=== PATIENT | female | born 1960 | race African-American/Black ===

== ENCOUNTER 2019-12-15 21:22 | Inpatient (IN) | payer SELFPAY ==
[~2019-12-15] VITALS: Ht 144.8 cm; Wt 78.0 kg
[2019-12-15] MEDS ORDERED: NITROGLYCERIN 0.4MG TABLET SL SL PRN (22:15)
[2019-12-15 23:12] LABS: HEMATOCRIT. 25.1 % (36.0-48.0); HEMOGLOBIN. 8.4 g/dL (12.0-16.0); MEAN CORPUSCULAR HEMOGLOBIN 33.4 pg (28.0-32.0); MEAN CORPUSCULAR VOLUME 99.9 fL (81.0-99.0); MEAN PLATELET VOLUME 8.1 fl (7.4-10.4); PLATELET 169 x1000/uL (130-400); RED BLOOD CELL COUNT 2.52 mill/uL (4.2-5.4); RED CELL DISTRIBUTION WIDTH 16.9 % (11.6-14.6)
[2019-12-15 23:16] LABS: CHLORIDE 106 mEq/L (98-107)
[2019-12-15 23:24] LABS: NUCLEATED RED BLOOD CELLS 1 /100 WBC; PLATELET ESTIMATE NORMAL
[2019-12-16] MEDS ORDERED: IOHEXOL-350 100 ML BOTTLE ONE ×2 (00:58→18:48)
[2019-12-16] MEDS ORDERED: SODIUM CHLORIDE 0.9% 2,000 ML IV NR (01:30)
[2019-12-16] MEDS ORDERED: PROPOFOL 10MG/ML 100ML 100 ML IV SCH (01:30)
[2019-12-16] MEDS ORDERED: PIPERACILLIN/TAZ 3.375G PREMIX 50 ML IV ONE (01:30)
[2019-12-16] MEDS ORDERED: VANCOMYCIN 1 G PREMIX 200 ML IV NR (01:30)
[2019-12-16] MEDS ORDERED: PIPERACILLIN/TAZOBACTAM 2.25 G in DEXTROSE 5% WATER 50 ML IV NR (02:00)
[2019-12-16] MEDS ORDERED: ENOXAPARIN 80MG/0.8ML SYR SUBCUT ONE (02:00)
[2019-12-16 02:27] LABS: BG BASE EXCESS -5.2 mmol/L (-2.0-2.0); BG CARBOXYHEMOGLOBIN 1.6 % (0.5-1.5); BG DEOXYHEMOGLOBIN 18.7 % (0.0-5.0); BG FRACTION INSPIRED OXYGEN 100; BG HCO3 ACT 21.8 mmol/L (22.0-26.0); BG METHEMOGLOBIN 0.1 % (0.0-1.5); BG OXYHEMOGLOBIN 79.6 % (94.0-97.0); BG PCO2 49.3 mmHg (35.0-45.0); BG PH 7.264 (7.350-7.450); BG PO2 52.9 mmHg (75.0-100.0); BG SAMPLE SITE RIGHT RADIAL; BG TIDAL VOLUME(mL) 500 mL; BG TOTAL HEMOGLOBIN 11.3 g/dL (12.0-18.0); BG VENT MODE VENT - A/C; BG VENT RATE 20 set
[2019-12-16] MEDS ORDERED: ONDANSETRON HCL 4MG/2ML INJ IV PRN (05:15)
[2019-12-16] MEDS: DEXT 5%/0.45% NACL 1000ML 1,000 ML IV SCH ×2 (07:46→22:40)
[2019-12-16] MEDS: AZITHROMYCIN 500 MG in DEXT 5% WATER 250 ML IV SCH ×2 (08:00→10:45)
[2019-12-16] MEDS ORDERED: CEFTRIAXONE 1 G PREMIX 50 ML IV SCH (09:00)
[2019-12-16] MEDS: METOPROLOL TARTRATE 25MG TABLET PO SCH ×3 (11:23→21:35)
[2019-12-16] MEDS ORDERED: IPRATROPIUM/ALBUTEROL 0.5-3(2.5)MG/3ML NEB HHN PRN (14:45)
[2019-12-16] MEDS ORDERED: FENTANYL CITRATE/PF 1,000 MCG in SODIUM CHLORIDE 0.9% 80 ML IV PRN (14:45)
[2019-12-16 15:13] LABS: HEMATOCRIT. 21.9 % (36.0-48.0); HEMOGLOBIN. 7.3 g/dL (12.0-16.0); MEAN CORPUSCULAR HEMOGLOBIN 33.1 pg (28.0-32.0); MEAN PLATELET VOLUME 8.5 fl (7.4-10.4); PLATELET 138 x1000/uL (130-400); RED BLOOD CELL COUNT 2.19 mill/uL (4.2-5.4); RED CELL DISTRIBUTION WIDTH 17.1 % (11.6-14.6)
[2019-12-16 15:37] LABS: BG BASE EXCESS -3.7 mmol/L (-2.0-2.0); BG CARBOXYHEMOGLOBIN 0.4 % (0.5-1.5); BG DEOXYHEMOGLOBIN 3.3 % (0.0-5.0); BG FRACTION INSPIRED OXYGEN 100; BG HCO3 ACT 20.3 mmol/L (22.0-26.0); BG METHEMOGLOBIN 0.3 % (0.0-1.5); BG OXYGEN SATURATION 96.7 % (92.0-98.5); BG PCO2 32.5 mmHg (35.0-45.0); BG PH 7.414 (7.350-7.450); BG PO2 87.5 mmHg (75.0-100.0); BG SAMPLE SITE RIGHT RADIAL; BG TIDAL VOLUME(mL) 500 mL; BG TOTAL HEMOGLOBIN 8.6 g/dL (12.0-18.0); BG VENT MODE VENT - A/C; BG VENT RATE 24 set
[2019-12-16 16:15] LABS: PLATELET ESTIMATE NORMAL
[2019-12-16] MEDS: PANTOPRAZOLE SODIUM 40 MG/VIAL IV SCH (17:54)
[2019-12-16] MEDS: IPRATROPIUM/ALBUTEROL 0.5-3(2.5)MG/3ML NEB HHN SCH (21:20)
[2019-12-16] MEDS: PROPOFOL 10MG/ML 100ML 100 ML IV PRN (21:43)
[2019-12-16 23:06] LABS: CREATINE KINASE MB FRACTION 7.1 ng/mL (0.5-3.6)
[2019-12-17] VITALS (12 sets, daily range): BP systolic 73–148; BP diastolic 45–85
[2019-12-17] MEDS: IPRATROPIUM/ALBUTEROL 0.5-3(2.5)MG/3ML NEB HHN SCH ×3 (01:21→22:15)
[2019-12-17] MEDS: PROPOFOL 10MG/ML 100ML 100 ML IV PRN ×2 (04:12→10:10)
[2019-12-17 05:03] LABS: HEMATOCRIT. 22.6 % (36.0-48.0); HEMOGLOBIN. 7.3 g/dL (12.0-16.0); MEAN CORPUSCULAR HEMOGLOBIN 32.7 pg (28.0-32.0); MEAN CORPUSCULAR VOLUME 100.4 fL (81.0-99.0); MEAN PLATELET VOLUME 8.9 fl (7.4-10.4); PLATELET 147 x1000/uL (130-400); RED BLOOD CELL COUNT 2.25 mill/uL (4.2-5.4); RED CELL DISTRIBUTION WIDTH 17.3 % (11.6-14.6)
[2019-12-17 05:10] LABS: CHLORIDE 106 mEq/L (98-107)
[2019-12-17 05:17] LABS: LDL CHOLESTEROL 26 mg/dL (5-100)
[2019-12-17 05:19] LABS: CREATINE KINASE 79 IU/L (26-192); CREATINE KINASE MB FRACTION 3.8 ng/mL (0.5-3.6); HDL CHOLESTEROL 46 mg/dL (40-59); T4 FREE 1.36 ng/dL (0.76-1.46)
[2019-12-17] MEDS: PANTOPRAZOLE SODIUM 40 MG/VIAL IV SCH (09:00)
[2019-12-17] MEDS: ENOXAPARIN 30MG/0.3ML SYR SUBCUT SCH (09:00)
[2019-12-17] MEDS: METOPROLOL TARTRATE 25MG TABLET PO SCH ×2 (09:00→21:38)
[2019-12-17 09:06] LABS: BG BASE EXCESS -3.3 mmol/L (-2.0-2.0); BG CARBOXYHEMOGLOBIN 0.1 % (0.5-1.5); BG DEOXYHEMOGLOBIN 0.2 % (0.0-5.0); BG FRACTION INSPIRED OXYGEN 100; BG HCO3 ACT 21.7 mmol/L (22.0-26.0); BG METHEMOGLOBIN 0.3 % (0.0-1.5); BG OXYGEN SATURATION 99.8 % (92.0-98.5); BG OXYHEMOGLOBIN 99.4 % (94.0-97.0); BG PCO2 38.4 mmHg (35.0-45.0); BG PH 7.369 (7.350-7.450); BG PO2 362.5 mmHg (75.0-100.0); BG SAMPLE SITE RIGHT RADIAL; BG TIDAL VOLUME(mL) 500 mL; BG TOTAL HEMOGLOBIN 7.3 g/dL (12.0-18.0); BG VENT MODE VENT - A/C; BG VENT RATE 20 set
[2019-12-17 10:29] LABS: PLATELET ESTIMATE NORMAL
[2019-12-17] MEDS ORDERED: NOREPINEPHRINE 4 MG in DEXT 5% WATER 250 ML IV ONE (12:00)
[2019-12-17] MEDS: AZITHROMYCIN 500 MG in DEXT 5% WATER 250 ML IV SCH (12:09)
[2019-12-17] MEDS: CEFTRIAXONE 1,000 MG in DEXTROSE 5% WATER 50 ML IV SCH (12:09)
[2019-12-17] MEDS: FENTANYL CITRATE/PF 1,000 MCG in SODIUM CHLORIDE 0.9% 80 ML IV PRN (12:39)
[2019-12-17] MEDS ORDERED: PROPOFOL 10MG/ML 100ML 100 ML IV PRN (14:39)
[2019-12-17] MEDS ORDERED: VANCOMYCIN 750 MG PREMIX 150 ML IV SCH (17:00)
[2019-12-17] MEDS ORDERED: NOREPINEPHRINE 4 MG in DEXT 5% WATER 246 ML IV PRN (17:30)
[2019-12-17] MEDS: DEXT 5%/0.45% NACL 1000ML 1,000 ML IV SCH (20:00)
[2019-12-18] MEDS: IPRATROPIUM/ALBUTEROL 0.5-3(2.5)MG/3ML NEB HHN SCH ×4 (01:56→20:20)
[2019-12-18] MEDS: ENOXAPARIN 30MG/0.3ML SYR SUBCUT SCH (07:49)
[2019-12-18] MEDS: PANTOPRAZOLE SODIUM 40 MG/VIAL IV SCH (07:50)
[2019-12-18] MEDS: METOPROLOL TARTRATE 25MG TABLET PO SCH ×2 (08:00→09:45)
[2019-12-18] MEDS: AZITHROMYCIN 500 MG in DEXT 5% WATER 250 ML IV SCH (08:14)
[2019-12-18] MEDS: DEXT 5%/0.45% NACL 1000ML 1,000 ML IV SCH (08:14)
[2019-12-18 09:10] LABS: BG BASE EXCESS -3.9 mmol/L (-2.0-2.0); BG CARBOXYHEMOGLOBIN 0.4 % (0.5-1.5); BG DEOXYHEMOGLOBIN 9.9 % (0.0-5.0); BG FRACTION INSPIRED OXYGEN 50; BG METHEMOGLOBIN 0.3 % (0.0-1.5); BG OXYHEMOGLOBIN 89.4 % (94.0-97.0); BG PCO2 43.8 mmHg (35.0-45.0); BG PH 7.318 (7.350-7.450); BG PO2 62.6 mmHg (75.0-100.0); BG SAMPLE SITE RIGHT RADIAL; BG TIDAL VOLUME(mL) 500 mL; BG TOTAL HEMOGLOBIN 7.3 g/dL (12.0-18.0); BG VENT MODE VENT - A/C; BG VENT RATE 20 set
[2019-12-18] MEDS: CEFTRIAXONE 1,000 MG in DEXTROSE 5% WATER 50 ML IV SCH (11:00)
[2019-12-19] VITALS (30 sets, daily range): BP systolic 87–167; BP diastolic 49–74
[2019-12-19] MEDS: PROPOFOL 10MG/ML 100ML 100 ML IV PRN ×5 (00:27→20:26)
[2019-12-19] MEDS: DEXT 5%/0.45% NACL 1000ML 1,000 ML IV SCH ×2 (00:40→09:58)
[2019-12-19 01:02] LABS: MEAN CORPUSCULAR HEMOGLOBIN 32.3 pg (28.0-32.0); MEAN CORPUSCULAR VOLUME 99.1 fL (81.0-99.0); MEAN PLATELET VOLUME 8.9 fl (7.4-10.4); PLATELET 137 x1000/uL (130-400); RED BLOOD CELL COUNT 1.92 mill/uL (4.2-5.4); RED CELL DISTRIBUTION WIDTH 17.2 % (11.6-14.6)
[2019-12-19 01:32] LABS: HEMOGLOBIN. 6.2 g/dL (12.0-16.0)
[2019-12-19 01:33] LABS: HEMATOCRIT. 19.1 % (36.0-48.0)
[2019-12-19] MEDS: IPRATROPIUM/ALBUTEROL 0.5-3(2.5)MG/3ML NEB HHN SCH ×5 (02:02→20:38)
[2019-12-19 04:36] LABS: MEAN CORPUSCULAR HEMOGLOBIN 32.3 pg (28.0-32.0); MEAN CORPUSCULAR VOLUME 100.1 fL (81.0-99.0); MEAN PLATELET VOLUME 9.5 fl (7.4-10.4); PLATELET 134 x1000/uL (130-400); RED BLOOD CELL COUNT 1.98 mill/uL (4.2-5.4); RED CELL DISTRIBUTION WIDTH 17.6 % (11.6-14.6)
[2019-12-19 04:43] LABS: HEMOGLOBIN. 6.4 g/dL (12.0-16.0)
[2019-12-19 04:45] LABS: HEMATOCRIT. 19.8 % (36.0-48.0)
[2019-12-19 07:27] LABS: PLATELET ESTIMATE NORMAL
[2019-12-19 08:31] LABS: PLATELET ESTIMATE NORMAL
[2019-12-19 09:05] LABS: BG BASE EXCESS -4.5 mmol/L (-2.0-2.0); BG CARBOXYHEMOGLOBIN 0.6 % (0.5-1.5); BG DEOXYHEMOGLOBIN 7.1 % (0.0-5.0); BG FRACTION INSPIRED OXYGEN 50; BG HCO3 ACT 21.1 mmol/L (22.0-26.0); BG METHEMOGLOBIN 0.4 % (0.0-1.5); BG OXYGEN SATURATION 92.8 % (92.0-98.5); BG OXYHEMOGLOBIN 91.9 % (94.0-97.0); BG PCO2 41.4 mmHg (35.0-45.0); BG PH 7.326 (7.350-7.450); BG PO2 69.3 mmHg (75.0-100.0); BG SAMPLE SITE RIGHT RADIAL; BG TIDAL VOLUME(mL) 500 mL; BG TOTAL HEMOGLOBIN 7.6 g/dL (12.0-18.0); BG VENT MODE VENT - A/C; BG VENT RATE 20 set
[2019-12-19] MEDS: AZITHROMYCIN 500 MG in DEXT 5% WATER 250 ML IV SCH (09:41)
[2019-12-19] MEDS: ENOXAPARIN 30MG/0.3ML SYR SUBCUT SCH (09:41)
[2019-12-19] MEDS: PANTOPRAZOLE SODIUM 40 MG/VIAL IV SCH (09:42)
[2019-12-19] MEDS: METOPROLOL TARTRATE 25MG TABLET PO SCH ×2 (09:58→20:22)
[2019-12-19] MEDS: ACETAMINOPHEN 325MG TABLET PO PRN (09:58)
[2019-12-19] MEDS: CEFTRIAXONE 1,000 MG in DEXTROSE 5% WATER 50 ML IV SCH (16:47)
[2019-12-19] MEDS ORDERED: VANCOMYCIN 500 MG PREMIX 100 ML IV SCH ×2 (17:00→18:30)
[2019-12-19 22:37] LABS: HEMATOCRIT 27.4 % (36.0-48.0); HEMOGLOBIN 9.5 g/dL (12.0-16.0)
[2019-12-20] VITALS (37 sets, daily range): BP systolic 116–196; BP diastolic 64–91
[2019-12-20] MEDS: PROPOFOL 10MG/ML 100ML 100 ML IV PRN ×5 (01:23→20:31)
[2019-12-20] MEDS: FENTANYL CITRATE/PF 1,000 MCG in SODIUM CHLORIDE 0.9% 80 ML IV PRN (05:41)
[2019-12-20 08:14] LABS: BG BASE EXCESS -6.3 mmol/L (-2.0-2.0); BG CARBOXYHEMOGLOBIN 0.3 % (0.5-1.5); BG DEOXYHEMOGLOBIN 3.4 % (0.0-5.0); BG FRACTION INSPIRED OXYGEN 50; BG METHEMOGLOBIN 0.2 % (0.0-1.5); BG OXYGEN SATURATION 96.6 % (92.0-98.5); BG OXYHEMOGLOBIN 96.1 % (94.0-97.0); BG PCO2 26.5 mmHg (35.0-45.0); BG PH 7.426 (7.350-7.450); BG PO2 94.2 mmHg (75.0-100.0); BG SAMPLE SITE RIGHT RADIAL; BG TIDAL VOLUME(mL) 500 mL; BG TOTAL HEMOGLOBIN 9.2 g/dL (12.0-18.0); BG VENT MODE VENT - A/C; BG VENT RATE 20 set
[2019-12-20] MEDS ORDERED: DEXTROSE 5% WATER 1,000 ML IV SCH (08:45)
[2019-12-20] MEDS: METOPROLOL TARTRATE 25MG TABLET PO SCH ×2 (08:50→20:15)
[2019-12-20] MEDS: PANTOPRAZOLE SODIUM 40 MG/VIAL IV SCH (08:50)
[2019-12-20] MEDS: IPRATROPIUM/ALBUTEROL 0.5-3(2.5)MG/3ML NEB HHN SCH ×3 (08:51→20:20)
[2019-12-20] MEDS: AZITHROMYCIN 500 MG in DEXT 5% WATER 250 ML IV SCH (08:51)
[2019-12-20] MEDS: ENOXAPARIN 30MG/0.3ML SYR SUBCUT SCH (08:52)
[2019-12-20 09:24] LABS: HEMATOCRIT. 26.6 % (36.0-48.0); HEMOGLOBIN. 9.3 g/dL (12.0-16.0); MEAN CORPUSCULAR HEMOGLOBIN 31.5 pg (28.0-32.0); MEAN PLATELET VOLUME 9.2 fl (7.4-10.4); PLATELET 124 x1000/uL (130-400); RED BLOOD CELL COUNT 2.96 mill/uL (4.2-5.4); RED CELL DISTRIBUTION WIDTH 17.1 % (11.6-14.6)
[2019-12-20] MEDS: EPOETIN ALFA 4000UNITS/ML VIAL SUBCUT SCH (09:56)
[2019-12-20 10:14] LABS: PLATELET ESTIMATE SLIGHTLY DECREASED
[2019-12-20] MEDS: CEFTRIAXONE 1,000 MG in DEXTROSE 5% WATER 50 ML IV SCH (12:32)
[2019-12-20] MEDS: METOCLOPRAMIDE HCL 10MG/2ML VIAL IV SCH ×2 (17:01→23:25)
[2019-12-21] VITALS (41 sets, daily range): BP systolic 120–186; BP diastolic 60–82
[2019-12-21] MEDS: IPRATROPIUM/ALBUTEROL 0.5-3(2.5)MG/3ML NEB HHN SCH ×4 (00:22→20:43)
[2019-12-21] MEDS: PROPOFOL 10MG/ML 100ML 100 ML IV PRN ×4 (02:22→18:54)
[2019-12-21] MEDS: FENTANYL CITRATE/PF 1,000 MCG in SODIUM CHLORIDE 0.9% 80 ML IV PRN ×2 (02:36→21:13)
[2019-12-21 06:21] LABS: HEMATOCRIT. 27.5 % (36.0-48.0); HEMOGLOBIN. 9.6 g/dL (12.0-16.0); MEAN CORPUSCULAR HEMOGLOBIN 31.6 pg (28.0-32.0); MEAN CORPUSCULAR VOLUME 90.7 fL (81.0-99.0); MEAN PLATELET VOLUME 9.2 fl (7.4-10.4); PLATELET 128 x1000/uL (130-400); RED BLOOD CELL COUNT 3.03 mill/uL (4.2-5.4); RED CELL DISTRIBUTION WIDTH 16.8 % (11.6-14.6)
[2019-12-21] MEDS: METOCLOPRAMIDE HCL 10MG/2ML VIAL IV SCH ×3 (08:17→17:01)
[2019-12-21] MEDS: PANTOPRAZOLE SODIUM 40 MG/VIAL IV SCH (08:17)
[2019-12-21] MEDS: METOPROLOL TARTRATE 25MG TABLET PO SCH ×2 (08:17→20:34)
[2019-12-21] MEDS: ENOXAPARIN 30MG/0.3ML SYR SUBCUT SCH (08:18)
[2019-12-21 09:08] LABS: BG BASE EXCESS -5.6 mmol/L (-2.0-2.0); BG CARBOXYHEMOGLOBIN 0.3 % (0.5-1.5); BG DEOXYHEMOGLOBIN 4.7 % (0.0-5.0); BG FRACTION INSPIRED OXYGEN 50; BG HCO3 ACT 19.7 mmol/L (22.0-26.0); BG METHEMOGLOBIN 0.3 % (0.0-1.5); BG OXYGEN SATURATION 95.3 % (92.0-98.5); BG OXYHEMOGLOBIN 94.7 % (94.0-97.0); BG PCO2 37.7 mmHg (35.0-45.0); BG PH 7.336 (7.350-7.450); BG PO2 83.5 mmHg (75.0-100.0); BG SAMPLE SITE RIGHT RADIAL; BG TIDAL VOLUME(mL) 500 mL; BG TOTAL HEMOGLOBIN 9.9 g/dL (12.0-18.0); BG VENT MODE VENT - A/C; BG VENT RATE 20 set
[2019-12-21] MEDS: CEFTRIAXONE 1,000 MG in DEXTROSE 5% WATER 50 ML IV SCH (11:30)
[2019-12-21 11:54] LABS: PLATELET ESTIMATE SLIGHTLY DECREASED
[2019-12-21] MEDS: ACETAMINOPHEN 325MG TABLET PO PRN (20:38)
[2019-12-22] VITALS (49 sets, daily range): BP systolic 93–208; BP diastolic 52–95
[2019-12-22] MEDS: METOCLOPRAMIDE HCL 10MG/2ML VIAL IV SCH ×4 (00:21→17:45)
[2019-12-22] MEDS: IPRATROPIUM/ALBUTEROL 0.5-3(2.5)MG/3ML NEB HHN SCH ×4 (02:42→20:32)
[2019-12-22] MEDS: HYDRALAZINE 20MG/ML VIAL IV PRN ×2 (06:07→11:55)
[2019-12-22 06:19] LABS: HEMATOCRIT. 26.7 % (36.0-48.0); HEMOGLOBIN. 9.1 g/dL (12.0-16.0); MEAN CORPUSCULAR HEMOGLOBIN 31.2 pg (28.0-32.0); MEAN CORPUSCULAR VOLUME 91.3 fL (81.0-99.0); MEAN PLATELET VOLUME 9.3 fl (7.4-10.4); PLATELET 151 x1000/uL (130-400); RED BLOOD CELL COUNT 2.92 mill/uL (4.2-5.4); RED CELL DISTRIBUTION WIDTH 16.6 % (11.6-14.6)
[2019-12-22] MEDS: FENTANYL CITRATE/PF 1,000 MCG in SODIUM CHLORIDE 0.9% 80 ML IV PRN ×2 (07:38→20:07)
[2019-12-22] MEDS ORDERED: MIDAZOLAM HCL 100 MG in DEXT 5% WATER 80 ML IV PRN (07:45)
[2019-12-22 08:42] LABS: BG BASE EXCESS -2.1 mmol/L (-2.0-2.0); BG CARBOXYHEMOGLOBIN 0.2 % (0.5-1.5); BG DEOXYHEMOGLOBIN 2.5 % (0.0-5.0); BG HCO3 ACT 22.5 mmol/L (22.0-26.0); BG METHEMOGLOBIN 0.3 % (0.0-1.5); BG OXYGEN SATURATION 97.5 % (92.0-98.5); BG PCO2 37.7 mmHg (35.0-45.0); BG PH 7.394 (7.350-7.450); BG PO2 101.3 mmHg (75.0-100.0); BG SAMPLE SITE RIGHT RADIAL; BG TIDAL VOLUME(mL) 500 mL; BG VENT MODE VENT - A/C; BG VENT RATE 20 set
[2019-12-22 09:33] LABS: BG FRACTION INSPIRED OXYGEN 50
[2019-12-22] MEDS: PANTOPRAZOLE SODIUM 40 MG/VIAL IV SCH (09:41)
[2019-12-22] MEDS: ENOXAPARIN 30MG/0.3ML SYR SUBCUT SCH (09:41)
[2019-12-22] MEDS: METOPROLOL TARTRATE 25MG TABLET PO SCH ×2 (09:42→20:33)
[2019-12-22 10:53] LABS: PLATELET ESTIMATE NORMAL
[2019-12-22] MEDS: EPOETIN ALFA 4000UNITS/ML VIAL SUBCUT SCH (20:33)
[2019-12-22] MEDS ORDERED: CEFEPIME 2,000 MG in DEXT 5% WATER 100 ML IV SCH (21:30)
[2019-12-23] VITALS (56 sets, daily range): BP systolic 106–218; BP diastolic 56–123
[2019-12-23] MEDS: METOCLOPRAMIDE HCL 10MG/2ML VIAL IV SCH ×5 (00:11→23:22)
[2019-12-23] MEDS: IPRATROPIUM/ALBUTEROL 0.5-3(2.5)MG/3ML NEB HHN SCH ×5 (02:22→23:44)
[2019-12-23] MEDS: CEFEPIME 1,000 MG in DEXTROSE 5% WATER 50 ML IV SCH ×2 (05:27→21:06)
[2019-12-23 05:31] LABS: HEMATOCRIT. 26.3 % (36.0-48.0); HEMOGLOBIN. 8.9 g/dL (12.0-16.0); MEAN CORPUSCULAR HEMOGLOBIN 31.2 pg (28.0-32.0); MEAN CORPUSCULAR VOLUME 91.7 fL (81.0-99.0); MEAN PLATELET VOLUME 9.6 fl (7.4-10.4); PLATELET 178 x1000/uL (130-400); RED BLOOD CELL COUNT 2.87 mill/uL (4.2-5.4); RED CELL DISTRIBUTION WIDTH 16.9 % (11.6-14.6)
[2019-12-23] MEDS: FENTANYL CITRATE/PF 1,000 MCG in SODIUM CHLORIDE 0.9% 80 ML IV PRN ×2 (06:32→16:53)
[2019-12-23] MEDS: ACETYLCYSTEINE 100MG/ML 10% VIAL 4ML INH SCH ×3 (07:57→23:44)
[2019-12-23] MEDS: PANTOPRAZOLE SODIUM 40 MG/VIAL IV SCH (09:27)
[2019-12-23] MEDS: ENOXAPARIN 30MG/0.3ML SYR SUBCUT SCH (09:28)
[2019-12-23] MEDS: METOPROLOL TARTRATE 25MG TABLET PO SCH ×2 (09:28→21:07)
[2019-12-23 09:41] LABS: PLATELET ESTIMATE NORMAL
[2019-12-23] MEDS: HYDRALAZINE 20MG/ML VIAL IV PRN ×2 (17:50→23:23)
[2019-12-23 19:00] LABS: BG BASE EXCESS -0.8 mmol/L (-2.0-2.0); BG CARBOXYHEMOGLOBIN 0.2 % (0.5-1.5); BG DEOXYHEMOGLOBIN 9.1 % (0.0-5.0); BG FRACTION INSPIRED OXYGEN 40; BG HCO3 ACT 23.2 mmol/L (22.0-26.0); BG METHEMOGLOBIN 0.2 % (0.0-1.5); BG OXYGEN SATURATION 90.9 % (92.0-98.5); BG OXYHEMOGLOBIN 90.5 % (94.0-97.0); BG PCO2 35.8 mmHg (35.0-45.0); BG PH 7.429 (7.350-7.450); BG PO2 59.1 mmHg (75.0-100.0); BG PRESSURE SUPPORT 8; BG SAMPLE SITE RIGHT RADIAL; BG TOTAL HEMOGLOBIN 11.1 g/dL (12.0-18.0); BG VENT MODE VENT - CPAP
[2019-12-24] VITALS (55 sets, daily range): BP systolic 137–198; BP diastolic 66–117
[2019-12-24] MEDS: ACETYLCYSTEINE 100MG/ML 10% VIAL 4ML INH SCH ×2 (02:15→07:57)
[2019-12-24 04:44] LABS: HEMATOCRIT. 25.8 % (36.0-48.0); HEMOGLOBIN. 8.8 g/dL (12.0-16.0); MEAN CORPUSCULAR HEMOGLOBIN 31.2 pg (28.0-32.0); MEAN CORPUSCULAR VOLUME 90.9 fL (81.0-99.0); MEAN PLATELET VOLUME 9.2 fl (7.4-10.4); PLATELET 216 x1000/uL (130-400); RED BLOOD CELL COUNT 2.83 mill/uL (4.2-5.4); RED CELL DISTRIBUTION WIDTH 16.5 % (11.6-14.6)
[2019-12-24 04:55] LABS: CHLORIDE 95 mEq/L (98-107)
[2019-12-24] MEDS: METOCLOPRAMIDE HCL 10MG/2ML VIAL IV SCH ×4 (05:14→23:07)
[2019-12-24 07:49] LABS: BG BASE EXCESS 6.6 mmol/L (-2.0-2.0); BG CARBOXYHEMOGLOBIN 0.6 % (0.5-1.5); BG DEOXYHEMOGLOBIN 3.2 % (0.0-5.0); BG FRACTION INSPIRED OXYGEN 55; BG HCO3 ACT 32.1 mmol/L (22.0-26.0); BG METHEMOGLOBIN 0.4 % (0.0-1.5); BG OXYGEN SATURATION 96.8 % (92.0-98.5); BG OXYHEMOGLOBIN 95.8 % (94.0-97.0); BG PCO2 51.5 mmHg (35.0-45.0); BG PH 7.413 (7.350-7.450); BG PO2 88.4 mmHg (75.0-100.0); BG SAMPLE SITE RIGHT RADIAL; BG TIDAL VOLUME(mL) 500 mL; BG TOTAL HEMOGLOBIN 9.9 g/dL (12.0-18.0); BG VENT MODE VENT - A/C; BG VENT RATE 16 set
[2019-12-24] MEDS: FENTANYL CITRATE/PF 1,000 MCG in SODIUM CHLORIDE 0.9% 80 ML IV PRN (07:52)
[2019-12-24] MEDS: IPRATROPIUM/ALBUTEROL 0.5-3(2.5)MG/3ML NEB HHN SCH ×3 (07:57→21:00)
[2019-12-24] MEDS: HYDRALAZINE 20MG/ML VIAL IV PRN ×2 (08:43→19:17)
[2019-12-24] MEDS: PANTOPRAZOLE SODIUM 40 MG/VIAL IV SCH (08:43)
[2019-12-24] MEDS: METOPROLOL TARTRATE 25MG TABLET PO SCH ×2 (08:43→20:10)
[2019-12-24] MEDS: ENOXAPARIN 30MG/0.3ML SYR SUBCUT SCH (08:44)
[2019-12-24] MEDS: AMLODIPINE 10MG TABLET PO SCH (13:05)
[2019-12-24] MEDS ORDERED: LABETALOL 5MG/ML SYR 20 MG/4 ML SYRINGE IV NR (13:30)
[2019-12-24 17:41] LABS: PLATELET ESTIMATE NORMAL
[2019-12-24] MEDS: EPOETIN ALFA 4000UNITS/ML VIAL SUBCUT SCH (20:10)
[2019-12-24] MEDS ORDERED: ENALAPRIL 2.5MG/2ML VIAL 2ML IV SCH (22:15)
[2019-12-24] MEDS: CEFEPIME 1,000 MG in DEXTROSE 5% WATER 50 ML IV SCH (22:31)
[2019-12-24] MEDS: CLONIDINE HCL 0.2MG/24HR PATCH TD SCH (23:07)
[2019-12-25] VITALS (80 sets, daily range): BP systolic 109–218; BP diastolic 55–119
[2019-12-25] MEDS ORDERED: NICARDIPINE 40MG/200ML PREMIX 200 ML IV PRN (00:30)
[2019-12-25] MEDS: NICARDIPINE 50 MG in SODIUM CHLORIDE 0.9% 230 ML IV PRN ×5 (00:44→20:10)
[2019-12-25] MEDS: IPRATROPIUM/ALBUTEROL 0.5-3(2.5)MG/3ML NEB HHN SCH ×4 (02:15→21:15)
[2019-12-25] MEDS: FENTANYL CITRATE/PF 1,000 MCG in SODIUM CHLORIDE 0.9% 80 ML IV PRN (02:29)
[2019-12-25] MEDS: METOCLOPRAMIDE HCL 10MG/2ML VIAL IV SCH ×4 (05:02→23:10)
[2019-12-25 06:13] LABS: HEMOGLOBIN. 8.9 g/dL (12.0-16.0); MEAN CORPUSCULAR HEMOGLOBIN 31.1 pg (28.0-32.0); MEAN CORPUSCULAR VOLUME 90.5 fL (81.0-99.0); PLATELET 225 x1000/uL (130-400); RED BLOOD CELL COUNT 2.87 mill/uL (4.2-5.4); RED CELL DISTRIBUTION WIDTH 16.6 % (11.6-14.6)
[2019-12-25] MEDS: HYDRALAZINE 20MG/ML VIAL IV PRN ×2 (06:15→14:33)
[2019-12-25 06:16] LABS: CHLORIDE 96 mEq/L (98-107)
[2019-12-25 07:41] LABS: BG BASE EXCESS 0.5 mmol/L (-2.0-2.0); BG CARBOXYHEMOGLOBIN 0.6 % (0.5-1.5); BG DEOXYHEMOGLOBIN 10.6 % (0.0-5.0); BG FRACTION INSPIRED OXYGEN 40; BG OXYGEN SATURATION 89.3 % (92.0-98.5); BG OXYHEMOGLOBIN 88.8 % (94.0-97.0); BG PCO2 39.8 mmHg (35.0-45.0); BG PH 7.416 (7.350-7.450); BG PO2 55.3 mmHg (75.0-100.0); BG PRESSURE SUPPORT 12; BG SAMPLE SITE RIGHT RADIAL; BG TIDAL VOLUME(mL) 500 mL; BG TOTAL HEMOGLOBIN 10.5 g/dL (12.0-18.0); BG VENT MODE VENT - SIMV; BG VENT RATE 10 set
[2019-12-25] MEDS: PANTOPRAZOLE SODIUM 40 MG/VIAL IV SCH (08:03)
[2019-12-25] MEDS: AMLODIPINE 10MG TABLET PO SCH (08:04)
[2019-12-25] MEDS: METOPROLOL TARTRATE 25MG TABLET PO SCH (08:04)
[2019-12-25] MEDS: ENOXAPARIN 30MG/0.3ML SYR SUBCUT SCH (08:04)
[2019-12-25] MEDS: ACETYLCYSTEINE 100MG/ML 10% VIAL 4ML INH SCH ×2 (08:21→21:15)
[2019-12-25] MEDS: CARVEDILOL 6.25 MG TABLET PO SCH ×2 (09:39→20:09)
[2019-12-25 10:41] LABS: BG BASE EXCESS -4.9 mmol/L (-2.0-2.0); BG CARBOXYHEMOGLOBIN 0.2 % (0.5-1.5); BG DEOXYHEMOGLOBIN 11.3 % (0.0-5.0); BG FRACTION INSPIRED OXYGEN 40; BG HCO3 ACT 19.1 mmol/L (22.0-26.0); BG METHEMOGLOBIN 0.1 % (0.0-1.5); BG OXYGEN SATURATION 88.7 % (92.0-98.5); BG OXYHEMOGLOBIN 88.4 % (94.0-97.0); BG PCO2 31.4 mmHg (35.0-45.0); BG PH 7.401 (7.350-7.450); BG PRESSURE SUPPORT 8; BG SAMPLE SITE RIGHT RADIAL; BG TOTAL HEMOGLOBIN 9.7 g/dL (12.0-18.0); BG VENT MODE VENT - CPAP
[2019-12-25] MEDS ORDERED: MIDAZOLAM HCL 100 MG in DEXT 5% WATER 80 ML IV PRN (19:45)
[2019-12-25] MEDS: CEFEPIME 1,000 MG in DEXTROSE 5% WATER 50 ML IV SCH (22:48)
[2019-12-26] VITALS (93 sets, daily range): BP systolic 81–186; BP diastolic 39–134
[2019-12-26] MEDS: IPRATROPIUM/ALBUTEROL 0.5-3(2.5)MG/3ML NEB HHN SCH ×4 (01:40→21:01)
[2019-12-26] MEDS: NICARDIPINE 50 MG in SODIUM CHLORIDE 0.9% 230 ML IV PRN ×4 (04:01→19:00)
[2019-12-26] MEDS: METOCLOPRAMIDE HCL 10MG/2ML VIAL IV SCH ×3 (05:21→17:49)
[2019-12-26 08:38] LABS: PLATELET ESTIMATE NORMAL
[2019-12-26] MEDS: ACETYLCYSTEINE 100MG/ML 10% VIAL 4ML INH SCH ×2 (08:40→21:01)
[2019-12-26] MEDS: CARVEDILOL 6.25 MG TABLET PO SCH ×2 (09:09→21:15)
[2019-12-26] MEDS: PANTOPRAZOLE SODIUM 40 MG/VIAL IV SCH (09:09)
[2019-12-26] MEDS: ENOXAPARIN 30MG/0.3ML SYR SUBCUT SCH (09:09)
[2019-12-26] MEDS: AMLODIPINE 10MG TABLET PO SCH (09:10)
[2019-12-26] MEDS: HYDRALAZINE 20MG/ML VIAL IV PRN (16:19)
[2019-12-26] MEDS: CEFEPIME 1,000 MG in DEXTROSE 5% WATER 50 ML IV SCH (21:14)
[2019-12-27] VITALS (57 sets, daily range): BP systolic 115–181; BP diastolic 40–107
[2019-12-27] MEDS: METOCLOPRAMIDE HCL 10MG/2ML VIAL IV SCH ×5 (00:22→23:57)
[2019-12-27] MEDS: IPRATROPIUM/ALBUTEROL 0.5-3(2.5)MG/3ML NEB HHN SCH ×5 (01:22→20:30)
[2019-12-27] MEDS: NICARDIPINE 50 MG in SODIUM CHLORIDE 0.9% 230 ML IV PRN ×2 (04:20→08:06)
[2019-12-27 05:48] LABS: CHLORIDE 101 mEq/L (98-107)
[2019-12-27 05:57] LABS: HEMATOCRIT. 25.1 % (36.0-48.0); HEMOGLOBIN. 8.4 g/dL (12.0-16.0); MEAN CORPUSCULAR VOLUME 92.7 fL (81.0-99.0); MEAN PLATELET VOLUME 9.5 fl (7.4-10.4); PLATELET 245 x1000/uL (130-400); RED BLOOD CELL COUNT 2.71 mill/uL (4.2-5.4); RED CELL DISTRIBUTION WIDTH 16.7 % (11.6-14.6)
[2019-12-27] MEDS: AMLODIPINE 10MG TABLET PO SCH (08:05)
[2019-12-27] MEDS: CARVEDILOL 6.25 MG TABLET PO SCH ×2 (08:06→20:01)
[2019-12-27] MEDS: PANTOPRAZOLE SODIUM 40 MG/VIAL IV SCH (08:07)
[2019-12-27] MEDS: ACETYLCYSTEINE 100MG/ML 10% VIAL 4ML INH SCH ×2 (08:36→20:30)
[2019-12-27] MEDS: ENOXAPARIN 30MG/0.3ML SYR SUBCUT SCH (09:00)
[2019-12-27 09:33] LABS: BG BASE EXCESS -0.5 mmol/L (-2.0-2.0); BG CARBOXYHEMOGLOBIN 0.3 % (0.5-1.5); BG FRACTION INSPIRED OXYGEN 50; BG HCO3 ACT 23.3 mmol/L (22.0-26.0); BG METHEMOGLOBIN 0.2 % (0.0-1.5); BG OXYHEMOGLOBIN 90.5 % (94.0-97.0); BG PCO2 34.1 mmHg (35.0-45.0); BG PH 7.452 (7.350-7.450); BG PO2 62.4 mmHg (75.0-100.0); BG SAMPLE SITE RIGHT RADIAL; BG TOTAL HEMOGLOBIN 8.2 g/dL (12.0-18.0); BG VENT MODE VAPOTHERM
[2019-12-27] MEDS: CLONIDINE 0.1MG TABLET PO SCH ×2 (10:46→16:53)
[2019-12-27 11:42] LABS: PLATELET ESTIMATE NORMAL
[2019-12-28] VITALS (20 sets, daily range): BP systolic 107–152; BP diastolic 52–92
[2019-12-28] MEDS: IPRATROPIUM/ALBUTEROL 0.5-3(2.5)MG/3ML NEB HHN SCH ×4 (02:04→22:18)
[2019-12-28] MEDS: METOCLOPRAMIDE HCL 10MG/2ML VIAL IV SCH ×3 (05:24→18:41)
[2019-12-28 05:50] LABS: HEMATOCRIT. 22.4 % (36.0-48.0); HEMOGLOBIN. 7.3 g/dL (12.0-16.0); MEAN CORPUSCULAR HEMOGLOBIN 30.8 pg (28.0-32.0); MEAN CORPUSCULAR VOLUME 94.6 fL (81.0-99.0); PLATELET 194 x1000/uL (130-400); RED BLOOD CELL COUNT 2.36 mill/uL (4.2-5.4); RED CELL DISTRIBUTION WIDTH 16.3 % (11.6-14.6)
[2019-12-28] MEDS ORDERED: DEXTROSE 50% WATER 50ML SYRINGE IV PRN (07:00)
[2019-12-28 08:06] LABS: NUCLEATED RED BLOOD CELLS 1 /100 WBC
[2019-12-28 08:07] LABS: PLATELET ESTIMATE NORMAL
[2019-12-28] MEDS: AMLODIPINE 10MG TABLET PO SCH (08:29)
[2019-12-28] MEDS: PANTOPRAZOLE SODIUM 40 MG/VIAL IV SCH (08:29)
[2019-12-28] MEDS: ENOXAPARIN 30MG/0.3ML SYR SUBCUT SCH (09:00)
[2019-12-28] MEDS: CARVEDILOL 6.25 MG TABLET PO SCH ×2 (09:00→21:57)
[2019-12-28] MEDS: CLONIDINE 0.1MG TABLET PO SCH ×2 (09:00→17:00)
[2019-12-29] VITALS (11 sets, daily range): BP systolic 113–174; BP diastolic 57–81
[2019-12-29] MEDS: METOCLOPRAMIDE HCL 10MG/2ML VIAL IV SCH ×4 (01:54→19:11)
[2019-12-29] MEDS: IPRATROPIUM/ALBUTEROL 0.5-3(2.5)MG/3ML NEB HHN SCH ×4 (03:20→21:30)
[2019-12-29] MEDS: EPOETIN ALFA 10000UNITS/ML VIAL SUBCUT SCH (04:20)
[2019-12-29 07:54] LABS: HEMATOCRIT. 22.4 % (36.0-48.0); HEMOGLOBIN. 7.5 g/dL (12.0-16.0); MEAN CORPUSCULAR HEMOGLOBIN 31.4 pg (28.0-32.0); MEAN CORPUSCULAR VOLUME 93.6 fL (81.0-99.0); MEAN PLATELET VOLUME 9.3 fl (7.4-10.4); PLATELET 209 x1000/uL (130-400); RED CELL DISTRIBUTION WIDTH 16.2 % (11.6-14.6)
[2019-12-29] MEDS: CARVEDILOL 6.25 MG TABLET PO SCH ×2 (08:40→21:01)
[2019-12-29] MEDS: CLONIDINE 0.1MG TABLET PO SCH ×2 (08:40→19:11)
[2019-12-29] MEDS: AMLODIPINE 10MG TABLET PO SCH (08:41)
[2019-12-29] MEDS: PANTOPRAZOLE SODIUM 40 MG/VIAL IV SCH (08:41)
[2019-12-29] MEDS: ENOXAPARIN 30MG/0.3ML SYR SUBCUT SCH (08:41)
[2019-12-29 09:45] LABS: PLATELET ESTIMATE NORMAL
[2019-12-29] MEDS: CEFTRIAXONE 1,000 MG in DEXTROSE 5% WATER 50 ML IV SCH (13:49)
[2019-12-29] MEDS: FOLIC ACID/VITAMIN B COMP W-C TABLET PO SCH (13:50)
[2019-12-29 16:52] LABS: CLARITY URINE CLEAR (CLEAR); COLOR URINE DARK YELLOW (YELLOW); KETONES URINE NEGATIVE (NEGATIVE); LEUKOCYTE ESTERASE URINE TRACE (NEGATIVE); NITRITE URINE NEGATIVE (NEGATIVE); OCCULT BLOOD URINE NEGATIVE (NEGATIVE); PROTEIN URINE 3+ (NEGATIVE); SPECIFIC GRAVITY URINE 1.018 (1.005-1.030); UROBILINOGEN URINE 0.2 E.U./dL (0.2-1.0)
[2019-12-30] VITALS (21 sets, daily range): BP systolic 95–159; BP diastolic 48–81
[2019-12-30] MEDS: METOCLOPRAMIDE HCL 10MG/2ML VIAL IV SCH ×4 (00:28→17:38)
[2019-12-30] MEDS: IPRATROPIUM/ALBUTEROL 0.5-3(2.5)MG/3ML NEB HHN SCH ×3 (02:33→21:07)
[2019-12-30 07:46] LABS: HEMATOCRIT. 21.1 % (36.0-48.0); MEAN CORPUSCULAR HEMOGLOBIN 31.4 pg (28.0-32.0); MEAN CORPUSCULAR VOLUME 95.4 fL (81.0-99.0); PLATELET 191 x1000/uL (130-400); RED BLOOD CELL COUNT 2.21 mill/uL (4.2-5.4); RED CELL DISTRIBUTION WIDTH 16.5 % (11.6-14.6)
[2019-12-30 07:51] LABS: HEMOGLOBIN. 6.9 g/dL (12.0-16.0)
[2019-12-30] MEDS: PANTOPRAZOLE SODIUM 40 MG/VIAL IV SCH (08:56)
[2019-12-30] MEDS: CARVEDILOL 6.25 MG TABLET PO SCH ×2 (09:00→20:32)
[2019-12-30] MEDS: ENOXAPARIN 30MG/0.3ML SYR SUBCUT SCH (09:00)
[2019-12-30] MEDS: CLONIDINE 0.1MG TABLET PO SCH ×2 (09:00→17:38)
[2019-12-30] MEDS: FOLIC ACID/VITAMIN B COMP W-C TABLET PO SCH (09:00)
[2019-12-30 12:15] LABS: NUCLEATED RED BLOOD CELLS 1 /100 WBC
[2019-12-30 12:16] LABS: PLATELET ESTIMATE NORMAL
[2019-12-30] MEDS: CEFTRIAXONE 1,000 MG in DEXTROSE 5% WATER 50 ML IV SCH (15:31)
[2019-12-30] MEDS: AMLODIPINE 10MG TABLET PO SCH (15:36)
[2019-12-30] MEDS: EPOETIN ALFA 10000UNITS/ML VIAL SUBCUT SCH (20:31)
[2019-12-31] VITALS (13 sets, daily range): BP systolic 114–189; BP diastolic 46–85
[2019-12-31] MEDS: METOCLOPRAMIDE HCL 10MG/2ML VIAL IV SCH ×4 (00:11→17:00)
[2019-12-31 07:01] LABS: HEMATOCRIT 22.3 % (36.0-48.0); HEMOGLOBIN 7.5 g/dL (12.0-16.0); MEAN CORPUSCULAR HEMOGLOBIN 31.2 pg (28.0-32.0); MEAN CORPUSCULAR VOLUME 93.3 fL (81.0-99.0); PLATELET 177 x1000/uL (130-400); RED BLOOD CELL COUNT 2.39 mill/uL (4.2-5.4); RED CELL DISTRIBUTION WIDTH 15.9 % (11.6-14.6)
[2019-12-31] MEDS: IPRATROPIUM/ALBUTEROL 0.5-3(2.5)MG/3ML NEB HHN SCH ×3 (07:37→21:35)
[2019-12-31] MEDS: PANTOPRAZOLE SODIUM 40 MG/VIAL IV SCH (09:22)
[2019-12-31] MEDS: CARVEDILOL 6.25 MG TABLET PO SCH ×2 (09:23→21:10)
[2019-12-31] MEDS: AMLODIPINE 10MG TABLET PO SCH (09:23)
[2019-12-31] MEDS: CLONIDINE 0.1MG TABLET PO SCH ×2 (09:23→17:00)
[2019-12-31] MEDS: FOLIC ACID/VITAMIN B COMP W-C TABLET PO SCH (09:23)
[2019-12-31] MEDS: ENOXAPARIN 30MG/0.3ML SYR SUBCUT SCH (09:24)
[2019-12-31] MEDS: CLONIDINE HCL 0.2MG/24HR PATCH TD SCH (09:24)
[2019-12-31] MEDS: CEFTRIAXONE 1,000 MG in DEXTROSE 5% WATER 50 ML IV SCH (13:08)
[2020-01-01] VITALS (12 sets, daily range): BP systolic 101–161; BP diastolic 57–106
[2020-01-01] MEDS: METOCLOPRAMIDE HCL 10MG/2ML VIAL IV SCH ×5 (00:49→19:01)
[2020-01-01] MEDS: IPRATROPIUM/ALBUTEROL 0.5-3(2.5)MG/3ML NEB HHN SCH ×3 (02:05→16:59)
[2020-01-01] MEDS: PANTOPRAZOLE SODIUM 40 MG/VIAL IV SCH (09:25)
[2020-01-01] MEDS: FOLIC ACID/VITAMIN B COMP W-C TABLET PO SCH (09:26)
[2020-01-01] MEDS: AMLODIPINE 10MG TABLET PO SCH (09:26)
[2020-01-01] MEDS: CLONIDINE 0.1MG TABLET PO SCH ×2 (09:26→19:05)
[2020-01-01] MEDS: CARVEDILOL 6.25 MG TABLET PO SCH ×2 (09:26→20:04)
[2020-01-01] MEDS: ENOXAPARIN 30MG/0.3ML SYR SUBCUT SCH (09:27)
[2020-01-01 09:39] LABS: HEMATOCRIT. 23.9 % (36.0-48.0); HEMOGLOBIN. 7.9 g/dL (12.0-16.0); MEAN CORPUSCULAR HEMOGLOBIN 31.5 pg (28.0-32.0); MEAN CORPUSCULAR VOLUME 95.4 fL (81.0-99.0); MEAN PLATELET VOLUME 9.1 fl (7.4-10.4); PLATELET 196 x1000/uL (130-400); RED CELL DISTRIBUTION WIDTH 16.7 % (11.6-14.6)
[2020-01-01 11:49] LABS: NUCLEATED RED BLOOD CELLS 7 /100 WBC; PLATELET ESTIMATE NORMAL
[2020-01-01] MEDS: CEFTRIAXONE 1,000 MG in DEXTROSE 5% WATER 50 ML IV SCH (12:45)
[2020-01-01] MEDS: EPOETIN ALFA 10000UNITS/ML VIAL SUBCUT SCH (20:38)
[2020-01-02] VITALS (7 sets, daily range): BP systolic 99–160; BP diastolic 59–111
[2020-01-02] MEDS: IPRATROPIUM/ALBUTEROL 0.5-3(2.5)MG/3ML NEB HHN SCH ×2 (02:34→08:55)
[2020-01-02] MEDS: METOCLOPRAMIDE HCL 10MG/2ML VIAL IV SCH ×2 (05:26→11:05)
[2020-01-02 07:09] LABS: HEMATOCRIT. 24.1 % (36.0-48.0); HEMOGLOBIN. 8.1 g/dL (12.0-16.0); MEAN CORPUSCULAR HEMOGLOBIN 32.3 pg (28.0-32.0); MEAN CORPUSCULAR VOLUME 96.4 fL (81.0-99.0); MEAN PLATELET VOLUME 8.9 fl (7.4-10.4); PLATELET 190 x1000/uL (130-400); RED CELL DISTRIBUTION WIDTH 16.6 % (11.6-14.6)
[2020-01-02] MEDS: CLONIDINE 0.1MG TABLET PO SCH ×2 (08:34→11:22)
[2020-01-02] MEDS: AMLODIPINE 10MG TABLET PO SCH ×2 (08:35→11:23)
[2020-01-02] MEDS: CARVEDILOL 6.25 MG TABLET PO SCH ×2 (08:35→11:23)
[2020-01-02] MEDS: FOLIC ACID/VITAMIN B COMP W-C TABLET PO SCH (08:58)
[2020-01-02] MEDS: PANTOPRAZOLE SODIUM 40 MG/VIAL IV SCH (08:58)
[2020-01-02] MEDS: ENOXAPARIN 30MG/0.3ML SYR SUBCUT SCH (08:59)
[2020-01-02] MEDS: CEFTRIAXONE 1,000 MG in DEXTROSE 5% WATER 50 ML IV SCH (11:05)
[2020-01-02 13:24] LABS: PLATELET ESTIMATE NORMAL
== END 2020-01-02 12:30 | disposition home or self-care (01) | DRG 720 ==
LOC: ER 21:22 → MICUSO 12-16 01:58 → EDBEDREQ 12-16 02:04 → EDBEDREQSVC 12-16 02:04 → EDBEDREQDT 12-16 02:04 → EDBEDREQTM 12-16 02:04 → CANRESERV 12-16 13:52 → ENRESERV 12-16 13:52 → CANRESERV 12-16 14:01 → ENRESERV 12-16 14:01 → 5EST 12-17 09:24 → MICUSO 12-17 15:23 → CVICU 12-19 11:19 → 3WST 12-28 19:36
PROVIDERS: ADMIT Hospitalist; ATTEND Hospitalist
PROC: 06HY33Z Insertion of Infusion Device into Lower Vein, Percutaneous Approach (ICD-10-PCS; principal; 2019-12-15)
PROC: B54CZZA Ultrasonography of Left Lower Extremity Veins, Guidance (ICD-10-PCS; 2019-12-15)
PROC: 5A1D70Z Performance of Urinary Filtration, Intermittent, Less than 6 Hours Per Day (ICD-10-PCS; 2019-12-16)
PROC: 0BH17EZ Insertion of Endotracheal Airway into Trachea, Via Natural or Artificial Opening (ICD-10-PCS; 2019-12-16)
PROC: 5A1955Z Respiratory Ventilation, Greater than 96 Consecutive Hours (ICD-10-PCS; 2019-12-16)
PROC: 30233N1 Transfusion of Nonautologous Red Blood Cells into Peripheral Vein, Percutaneous Approach (ICD-10-PCS; 2019-12-19)
PROC: 5A1D70Z Performance of Urinary Filtration, Intermittent, Less than 6 Hours Per Day (ICD-10-PCS; 2019-12-19)
PROC: 5A1D70Z Performance of Urinary Filtration, Intermittent, Less than 6 Hours Per Day (ICD-10-PCS; 2019-12-21)
PROC: 5A1D70Z Performance of Urinary Filtration, Intermittent, Less than 6 Hours Per Day (ICD-10-PCS; 2019-12-23)
PROC: 5A1D70Z Performance of Urinary Filtration, Intermittent, Less than 6 Hours Per Day (ICD-10-PCS; 2019-12-25)
PROC: 02HV33Z Insertion of Infusion Device into Superior Vena Cava, Percutaneous Approach (ICD-10-PCS; 2019-12-27)
PROC: B518ZZA Fluoroscopy of Superior Vena Cava, Guidance (ICD-10-PCS; 2019-12-27)
PROC: 5A09357 Assistance with Respiratory Ventilation, Less than 24 Consecutive Hours, Continuous Positive Airway Pressure (ICD-10-PCS; 2019-12-27)
PROC: 5A1D70Z Performance of Urinary Filtration, Intermittent, Less than 6 Hours Per Day (ICD-10-PCS; 2019-12-28)
PROC: 5A09357 Assistance with Respiratory Ventilation, Less than 24 Consecutive Hours, Continuous Positive Airway Pressure (ICD-10-PCS; 2019-12-29)
PROC: 5A1D70Z Performance of Urinary Filtration, Intermittent, Less than 6 Hours Per Day (ICD-10-PCS; 2019-12-30)
PROC: 5A1D70Z Performance of Urinary Filtration, Intermittent, Less than 6 Hours Per Day (ICD-10-PCS; 2020-01-01)
DX: A41.9 Sepsis, unspecified organism (principal); E78.5 Hyperlipidemia, unspecified; E78.00 Pure hypercholesterolemia, unspecified; I47.1 Supraventricular tachycardia; J96.01 Acute respiratory failure with hypoxia; E43 Unspecified severe protein-calorie malnutrition; D63.8 Anemia in other chronic diseases classified elsewhere; E87.2 Acidosis; F17.210 Nicotine dependence, cigarettes, uncomplicated; I21.4 Non-ST elevation (NSTEMI) myocardial infarction; N18.6 End stage renal disease; I42.9 Cardiomyopathy, unspecified; I35.1 Nonrheumatic aortic (valve) insufficiency; I34.0 Nonrheumatic mitral (valve) insufficiency; R16.0 Hepatomegaly, not elsewhere classified; J18.9 Pneumonia, unspecified organism; G93.41 Metabolic encephalopathy; E87.1 Hypo-osmolality and hyponatremia; E87.6 Hypokalemia; G47.10 Hypersomnia, unspecified; M19.90 Unspecified osteoarthritis, unspecified site; I13.2 Hypertensive heart and chronic kidney disease with heart failure and with stage 5 chronic kidney disease, or end stage renal disease; Z20.828 Contact with and (suspected) exposure to other viral communicable diseases; I50.43 Acute on chronic combined systolic (congestive) and diastolic (congestive) heart failure; Z68.37 Body mass index [BMI] 37.0-37.9, adult; Z88.8 Allergy status to other drugs, medicaments and biological substances; Z86.718 Personal history of other venous thrombosis and embolism; Z99.2 Dependence on renal dialysis
CPT/HCPCS: 31500; 36415; 36600; 71045; 71275; 76937; 80048; 80053; 80061; 80202; 81003; 82140; 82375; 82550; 82553; 82728; 82805; 82962; 83036; 83540; 83550; 83605; 83880; 84100; 84145; 84439; 84443; 84478; 84484; 85014; 85018; 85025; 85027; 85379; 86850; 86900; 86920; 87070; 87106; 87635; 92610; 92950; 93005; 93306; 93970; 94002; 94003; 94640; 94660; 94667; 97163; 97164; 97166; 97530; 97535; 99291; C1725; C9113; J0360; J0456; J0692; J0696; J0885; J1650; J2543; J2704; J2765; J3010; J3370; J3490; J7050; J7060; J7070; J7608; P9016; Q9967; C9803-CS

== ENCOUNTER 2020-01-14 08:03 | Inpatient (IN) | payer MEDICAID, OTHER ==
[~2020-01-14] VITALS: Ht 167.6 cm; Wt 79.4 kg
[2020-01-14] MEDS ORDERED: NITROGLYCERIN 50MG PREMIX 250 ML IV ONE (08:15)
[2020-01-14 08:23] LABS: HEMATOCRIT. 30.8 % (36.0-48.0); HEMOGLOBIN. 9.9 g/dL (12.0-16.0); MEAN CORPUSCULAR VOLUME 103.1 fL (81.0-99.0); MEAN PLATELET VOLUME 8.5 fl (7.4-10.4); PLATELET 454 x1000/uL (130-400); RED BLOOD CELL COUNT 2.99 mill/uL (4.2-5.4); RED CELL DISTRIBUTION WIDTH 21.6 % (11.6-14.6)
[2020-01-14 08:27] LABS: CHLORIDE 97 mEq/L (98-107)
[2020-01-14 08:48] LABS: PROTHROMBIN TIME 10.9 sec (9.6-11.0)
[2020-01-14 09:15] LABS: NUCLEATED RED BLOOD CELLS 1 /100 WBC; PLATELET ESTIMATE INCREASED
[2020-01-14 09:27] LABS: BG BILEVEL POS AIRWAY PRESSURE ST=18/5; BG FRACTION INSPIRED OXYGEN 100; BG HCO3 ACT 16.7 mmol/L (22.0-26.0); BG METHEMOGLOBIN 0.3 % (0.0-1.5); BG OXYGEN SATURATION 91.7 % (92.0-98.5); BG OXYHEMOGLOBIN 88.7 % (94.0-97.0); BG PCO2 35.3 mmHg (35.0-45.0); BG PH 7.293 (7.350-7.450); BG PO2 72.3 mmHg (75.0-100.0); BG SAMPLE SITE RIGHT RADIAL; BG VENT MODE MASK - BIPAP; BG VENT RATE 16 set
[2020-01-14] MEDS ORDERED: VANCOMYCIN 1 G PREMIX 200 ML IV ONE (09:30)
[2020-01-14] MEDS ORDERED: PIPERACILLIN/TAZ 3.375G PREMIX 50 ML IV ONE (09:30)
[2020-01-14] MEDS ORDERED: FUROSEMIDE 40MG/4ML VIAL IVP ONE (09:30)
[2020-01-14] MEDS ORDERED: ONDANSETRON HCL 4MG/2ML INJ IV PRN ×2 (11:00→14:30)
[2020-01-14] MEDS ORDERED: DOCUSATE SODIUM 100MG CAPSULE PO PRN (11:00)
[2020-01-14] MEDS ORDERED: IPRATROPIUM/ALBUTEROL 0.5-3(2.5)MG/3ML NEB NEB PRN (11:00)
[2020-01-14] MEDS ORDERED: GUAIFENESIN 200MG/10ML SUGAR FREE UDC PO PRN (11:00)
[2020-01-14] MEDS ORDERED: ENOXAPARIN 40MG/0.4ML SYR SUBCUT SCH (14:30)
[2020-01-14] MEDS ORDERED: ACETAMINOPHEN 325MG TABLET PO PRN (14:30)
[2020-01-14] MEDS ORDERED: MAGNESIUM/ALUMINUM HYDROXIDE/SIMETHICONE 30ML UDC PO PRN (14:30)
[2020-01-14] MEDS ORDERED: DIPHENHYDRAMINE 50MG/ML VIAL IV PRN (14:30)
[2020-01-14] MEDS ORDERED: PIPERACILLIN/TAZ 3.375G PREMIX 50 ML IV SCH (14:30)
[2020-01-14] MEDS ORDERED: CLONIDINE 0.1MG TABLET PO PRN (14:30)
[2020-01-14] MEDS: HEPARIN 5000 UNITS/ML VIAL SUBCUT SCH ×2 (14:58→22:02)
[2020-01-14 20:25] VITALS: BP 149/95
[2020-01-14 20:30] VITALS: BP 149/95
[2020-01-14] MEDS ORDERED: PIPERACILLIN/TAZOBACTAM 3.375 G in DEXT 5% WATER 100 ML IV SCH (21:00)
[2020-01-14] MEDS: ACETAMINOPHEN 325MG TABLET PO PRN (21:00)
[2020-01-14] MEDS ORDERED: ASPI-1079 PO (21:57)
[2020-01-14] MEDS: PIPERACILLIN/TAZOBACTAM 2.25 G in DEXTROSE 5% WATER 50 ML IV SCH (22:02)
[2020-01-15] VITALS: BP 180/68
[2020-01-15] MEDS: HYDRALAZINE 20MG/ML VIAL IV PRN ×2 (00:47→12:09)
[2020-01-15 04:00] VITALS: BP_SYST 160; BP_SYST 212; BP_DIAS 66; BP_DIAS 86
[2020-01-15] MEDS: HEPARIN 5000 UNITS/ML VIAL SUBCUT SCH ×3 (05:25→22:41)
[2020-01-15 08:00] VITALS: BP 142/71
[2020-01-15 09:00] LABS: BASOPHILS % 1.7 % (0.0-2.0); EOSINOPHILS % 2.9 % (0.0-5.0); HEMOGLOBIN. 8.6 g/dL (12.0-16.0); LYMPHOCYTES % 19.8 % (20.0-50.0); MEAN CORPUSCULAR HEMOGLOBIN 33.5 pg (28.0-32.0); MEAN CORPUSCULAR VOLUME 101.6 fL (81.0-99.0); MEAN PLATELET VOLUME 8.6 fl (7.4-10.4); MONOCYTES % 6.5 % (2.0-8.0); NEUTROPHILS % 69.1 % (40.0-76.0); PLATELET 383 x1000/uL (130-400); RED BLOOD CELL COUNT 2.56 mill/uL (4.2-5.4)
[2020-01-15 09:40] LABS: CHLORIDE 99 mEq/L (98-107)
[2020-01-15] MEDS: PIPERACILLIN/TAZOBACTAM 2.25 G in DEXTROSE 5% WATER 50 ML IV SCH ×2 (09:43→22:55)
[2020-01-15 12:00] VITALS: BP 185/70
[2020-01-15] MEDS: ACETAMINOPHEN 325MG TABLET PO PRN (15:24)
[2020-01-15 16:00] VITALS: BP 171/76
[2020-01-15] MEDS: CLONIDINE 0.2MG TABLET PO PRN (16:29)
[2020-01-15] MEDS: IPRATROPIUM/ALBUTEROL 0.5-3(2.5)MG/3ML NEB HHN SCH (18:00)
[2020-01-15 20:24] VITALS: BP 162/64
[2020-01-16] VITALS (8 sets, daily range): BP systolic 143–193; BP diastolic 71–92
[2020-01-16] MEDS: IPRATROPIUM/ALBUTEROL 0.5-3(2.5)MG/3ML NEB HHN SCH ×5 (02:25→20:42)
[2020-01-16] MEDS: HEPARIN 5000 UNITS/ML VIAL SUBCUT SCH ×3 (06:09→22:09)
[2020-01-16 06:32] LABS: BASOPHILS % 1.2 % (0.0-2.0); EOSINOPHILS % 4.2 % (0.0-5.0); HEMOGLOBIN. 7.6 g/dL (12.0-16.0); LYMPHOCYTES % 16.5 % (20.0-50.0); MEAN CORPUSCULAR HEMOGLOBIN 33.7 pg (28.0-32.0); MEAN CORPUSCULAR VOLUME 101.4 fL (81.0-99.0); MONOCYTES % 8.6 % (2.0-8.0); NEUTROPHILS % 69.5 % (40.0-76.0); PLATELET 301 x1000/uL (130-400); RED BLOOD CELL COUNT 2.27 mill/uL (4.2-5.4); RED CELL DISTRIBUTION WIDTH 20.9 % (11.6-14.6)
[2020-01-16] MEDS: PIPERACILLIN/TAZOBACTAM 2.25 G in DEXTROSE 5% WATER 50 ML IV SCH ×2 (08:26→22:07)
[2020-01-16] MEDS: ACETAMINOPHEN 325MG TABLET PO PRN (09:29)
[2020-01-16] MEDS: CLONIDINE 0.2MG TABLET PO PRN (15:12)
[2020-01-16] MEDS ORDERED: EPOETIN ALFA 10000UNITS/ML VIAL SUBCUT SCH (21:00)
[2020-01-17] VITALS (11 sets, daily range): BP systolic 144–179; BP diastolic 55–76
[2020-01-17] MEDS: CLONIDINE 0.2MG TABLET PO PRN ×2 (00:32→21:51)
[2020-01-17] MEDS: IPRATROPIUM/ALBUTEROL 0.5-3(2.5)MG/3ML NEB HHN SCH ×4 (02:18→20:29)
[2020-01-17 06:19] LABS: MEAN CORPUSCULAR HEMOGLOBIN 33.1 pg (28.0-32.0); MEAN CORPUSCULAR VOLUME 100.6 fL (81.0-99.0); MEAN PLATELET VOLUME 7.9 fl (7.4-10.4); PLATELET 258 x1000/uL (130-400); RED CELL DISTRIBUTION WIDTH 20.6 % (11.6-14.6)
[2020-01-17] MEDS: HEPARIN 5000 UNITS/ML VIAL SUBCUT SCH ×3 (06:31→21:50)
[2020-01-17 06:48] LABS: HEMATOCRIT. 20.1 % (36.0-48.0); HEMOGLOBIN. 6.6 g/dL (12.0-16.0)
[2020-01-17] MEDS: PIPERACILLIN/TAZOBACTAM 2.25 G in DEXTROSE 5% WATER 50 ML IV SCH ×2 (08:08→21:49)
[2020-01-17 13:50] LABS: PLATELET ESTIMATE NORMAL
[2020-01-17 20:40] LABS: HEMATOCRIT 22.9 % (36.0-48.0); HEMOGLOBIN 7.8 g/dL (12.0-16.0)
[2020-01-18 00:56] VITALS: BP 142/56
[2020-01-18] MEDS: IPRATROPIUM/ALBUTEROL 0.5-3(2.5)MG/3ML NEB HHN SCH ×2 (01:26→08:40)
[2020-01-18 04:00] VITALS: BP 110/65
[2020-01-18] MEDS: HEPARIN 5000 UNITS/ML VIAL SUBCUT SCH (06:00)
[2020-01-18 07:28] LABS: HEMATOCRIT. 22.4 % (36.0-48.0); HEMOGLOBIN. 7.6 g/dL (12.0-16.0); MEAN CORPUSCULAR HEMOGLOBIN 32.9 pg (28.0-32.0); MEAN CORPUSCULAR VOLUME 97.5 fL (81.0-99.0); MEAN PLATELET VOLUME 8.1 fl (7.4-10.4); PLATELET 244 x1000/uL (130-400); RED CELL DISTRIBUTION WIDTH 20.9 % (11.6-14.6)
[2020-01-18 08:00] VITALS: BP 159/60
[2020-01-18] MEDS: PIPERACILLIN/TAZOBACTAM 2.25 G in DEXTROSE 5% WATER 50 ML IV SCH (08:12)
[2020-01-18 11:51] VITALS: BP 159/60
[2020-01-18 12:00] VITALS: BP 153/81
[2020-01-18 14:08] LABS: ATYPICAL LYMPHOCYTES 1; NUCLEATED RED BLOOD CELLS 1 /100 WBC; PLATELET ESTIMATE NORMAL
== END 2020-01-18 12:52 | disposition home or self-care (01) | DRG 720 ==
LOC: ER 08:10 → 7WST 11:15 → EDBEDREQSVC 11:18 → EDBEDREQ 11:18 → CANRESERV 16:15 → ENRESERV 16:15 → 7WST 20:53 → 6WST 01-15 16:56
PROVIDERS: ADMIT Hospitalist; ATTEND Hospitalist
PROC: 5A1D70Z Performance of Urinary Filtration, Intermittent, Less than 6 Hours Per Day (ICD-10-PCS; 2020-01-14)
PROC: 5A09357 Assistance with Respiratory Ventilation, Less than 24 Consecutive Hours, Continuous Positive Airway Pressure (ICD-10-PCS; 2020-01-14)
PROC: 5A1D70Z Performance of Urinary Filtration, Intermittent, Less than 6 Hours Per Day (ICD-10-PCS; 2020-01-16)
PROC: 30233N1 Transfusion of Nonautologous Red Blood Cells into Peripheral Vein, Percutaneous Approach (ICD-10-PCS; principal; 2020-01-17)
PROC: 5A1D70Z Performance of Urinary Filtration, Intermittent, Less than 6 Hours Per Day (ICD-10-PCS; 2020-01-18)
DX: A41.9 Sepsis, unspecified organism (principal); I13.2 Hypertensive heart and chronic kidney disease with heart failure and with stage 5 chronic kidney disease, or end stage renal disease; J96.01 Acute respiratory failure with hypoxia; E43 Unspecified severe protein-calorie malnutrition; I50.33 Acute on chronic diastolic (congestive) heart failure; D63.1 Anemia in chronic kidney disease; E78.5 Hyperlipidemia, unspecified; N18.6 End stage renal disease; R00.0 Tachycardia, unspecified; E78.00 Pure hypercholesterolemia, unspecified; D72.829 Elevated white blood cell count, unspecified; Z20.828 Contact with and (suspected) exposure to other viral communicable diseases; E87.2 Acidosis; Z99.2 Dependence on renal dialysis; Z88.8 Allergy status to other drugs, medicaments and biological substances; Z68.28 Body mass index [BMI] 28.0-28.9, adult
CPT/HCPCS: 36415; 36600; 71045; 80048; 80053; 82375; 82805; 83605; 83880; 84145; 84484; 85014; 85018; 85025; 85049; 85384; 86850; 86900; 86920; 87635; 93005; 94640; 94660; 99291; J0360; J0885; J1644; J1940; J2543; J3370; J3490; J7060; P9016

== ENCOUNTER 2020-01-19 01:12 | Inpatient (IN) | payer MEDICAID, OTHER ==
[~2020-01-19] VITALS: Ht 160 cm; Wt 75.0 kg
[2020-01-19] VITALS (37 sets, daily range): BP systolic 132–179; BP diastolic 60–100
[~2020-01-19 01:12] MED LIST: ASPI-1079 PO
[2020-01-19] MEDS ORDERED: MAGNESIUM 2 G PREMIX 50 ML IV STA (01:26)
[2020-01-19] MEDS ORDERED: ALBUTEROL (0.083%) 2.5MG/3ML NEB HHN STA (01:26)
[2020-01-19] MEDS ORDERED: METHYLPREDNISOLONE SOD SUCC 125 MG/2 ML VIAL IV STA (01:26)
[2020-01-19] MEDS ORDERED: IPRATROPIUM BROMIDE (0.02%) 0.5MG/2.5ML NEB HHN STA (01:26)
[2020-01-19] MEDS ORDERED: FUROSEMIDE 100MG/10ML VIAL IVP ONE (02:00)
[2020-01-19 02:10] LABS: HEMATOCRIT 26.8 % (36.0-48.0); HEMOGLOBIN 8.6 g/dL (12.0-16.0); MEAN CORPUSCULAR HEMOGLOBIN 31.9 pg (28.0-32.0); MEAN CORPUSCULAR VOLUME 99.7 fL (81.0-99.0); PLATELET 352 x1000/uL (130-400); RED BLOOD CELL COUNT 2.69 mill/uL (4.2-5.4)
[2020-01-19 02:17] LABS: CHLORIDE 98 mEq/L (98-107)
[2020-01-19] MEDS ORDERED: VANCOMYCIN 1 G PREMIX 200 ML IV SCH (02:30)
[2020-01-19] MEDS ORDERED: PIPERACILLIN/TAZOBACTAM 3.375GM/50ML PREMIX IV SCH (03:00)
[2020-01-19] MEDS ORDERED: ONDANSETRON HCL 4MG/2ML INJ IV PRN (07:15)
[2020-01-19] MEDS ORDERED: GUAIFENESIN 200MG/10ML SUGAR FREE UDC PO PRN (07:15)
[2020-01-19] MEDS ORDERED: DOCUSATE SODIUM 100MG CAPSULE PO PRN (07:15)
[2020-01-19] MEDS ORDERED: ACETAMINOPHEN 325MG TABLET PO PRN (07:15)
[2020-01-19] MEDS ORDERED: MAGNESIUM/ALUMINUM HYDROXIDE/SIMETHICONE 30ML UDC PO PRN (07:15)
[2020-01-19] MEDS ORDERED: NA PHOS,M-B/NA PHOS,DI-BA ENEMA 118ML PR PRN (07:15)
[2020-01-19] MEDS ORDERED: PIPERACILLIN/TAZ 3.375G PREMIX 50 ML IV SCH (07:15)
[2020-01-19] MEDS ORDERED: ZOLPIDEM TARTRATE 5MG TABLET PO PRN (07:15)
[2020-01-19] MEDS ORDERED: IPRATROPIUM/ALBUTEROL 0.5-3(2.5)MG/3ML NEB ORI PRN (07:15)
[2020-01-19] MEDS ORDERED: ENOXAPARIN 40MG/0.4ML SYR SUBCUT SCH (07:15)
[2020-01-19] MEDS ORDERED: NITROGLYCERIN 0.4MG TABLET SL SL PRN (07:15)
[2020-01-19 09:04] LABS: *AMPHETAMINES SCREEN URINE NEGATIVE (NEGATIVE); *BARBITURATES SCREEN URINE NEGATIVE (NEGATIVE); *BENZODIAZEPINES SCREEN URINE NEGATIVE (NEGATIVE); *COCAINE SCREEN URINE NEGATIVE (NEGATIVE); METHADONE URINE SCREEN NEGATIVE (NEGATIVE)
[2020-01-19 09:05] LABS: CANNABINOID URINE SCREEN NEGATIVE (NEGATIVE); OPIATES URINE SCREEN NEGATIVE (NEGATIVE); PHENCYCLIDINE URINE SCREEN NEGATIVE (NEGATIVE)
[2020-01-19] MEDS: ASPIRIN 325MG EC TABLET PO SCH (09:42)
[2020-01-19] MEDS: AMLODIPINE 10MG TABLET PO SCH (09:47)
[2020-01-19] MEDS: ZINC SULFATE 220 MG ( 50 ) CAPSULE PO SCH (09:47)
[2020-01-19] MEDS: FAMOTIDINE 20MG TABLET PO SCH (11:26)
[2020-01-19] MEDS: ASCORBIC ACID 500 MG TABLET PO SCH ×2 (11:26→21:09)
[2020-01-19] MEDS: GUAIFENESIN/DM 600MG/30MG ER TAB 12HR PO SCH ×2 (11:27→21:09)
[2020-01-19] MEDS: ENOXAPARIN 30MG/0.3ML SYR SUBCUT SCH (11:27)
[2020-01-19] MEDS ORDERED: ALBUTEROL 6.7GM HFA INHALER ORI PRN (11:30)
[2020-01-19] MEDS ORDERED: ALBUTEROL 6.7GM HFA INHALER ORI SCH (11:30)
[2020-01-19] MEDS ORDERED: IPRATROPIUM/ALBUTEROL 0.5-3(2.5)MG/3ML NEB HHN SCH (12:00)
[2020-01-19] MEDS: ACETAMINOPHEN 325MG TABLET PO PRN (14:59)
[2020-01-19 16:12] LABS: BG BASE EXCESS 1.3 mmol/L (-2.0-2.0); BG CARBOXYHEMOGLOBIN 0.3 % (0.5-1.5); BG DEOXYHEMOGLOBIN 0.5 % (0.0-5.0); BG FRACTION INSPIRED OXYGEN 100; BG HCO3 ACT 23.7 mmol/L (22.0-26.0); BG METHEMOGLOBIN 0.3 % (0.0-1.5); BG OXYGEN SATURATION 99.5 % (92.0-98.5); BG OXYHEMOGLOBIN 98.9 % (94.0-97.0); BG PCO2 29.9 mmHg (35.0-45.0); BG PH 7.517 (7.350-7.450); BG PO2 336.2 mmHg (75.0-100.0); BG SAMPLE SITE RIGHT RADIAL; BG TOTAL HEMOGLOBIN 10.2 g/dL (12.0-18.0); BG VENT MODE MASK - NRB
[2020-01-19 17:45] LABS: CREATINE KINASE MB FRACTION 3.5 ng/mL (0.5-3.6)
[2020-01-19] MEDS: PIPERACILLIN/TAZOBACTAM 2.25 G in DEXTROSE 5% WATER 50 ML IV SCH (18:04)
[2020-01-19] MEDS: EPOETIN ALFA 4000UNITS/ML VIAL SUBCUT SCH (21:09)
[2020-01-20] VITALS (9 sets, daily range): BP systolic 152–170; BP diastolic 58–84
[2020-01-20] MEDS: ACETAMINOPHEN 325MG TABLET PO PRN (06:08)
[2020-01-20] MEDS: PIPERACILLIN/TAZOBACTAM 2.25 G in DEXTROSE 5% WATER 50 ML IV SCH ×2 (06:08→17:20)
[2020-01-20] MEDS: CLONIDINE 0.1MG TABLET PO PRN (06:09)
[2020-01-20 07:36] LABS: PHOSPHORUS 7.5 mg/dL (2.5-4.9)
[2020-01-20 07:40] LABS: CREATINE KINASE MB FRACTION 2.2 ng/mL (0.5-3.6)
[2020-01-20 07:53] LABS: BASOPHILS % 0.7 % (0.0-2.0); EOSINOPHILS % 1.5 % (0.0-5.0); LYMPHOCYTES % 17.4 % (20.0-50.0); MEAN CORPUSCULAR HEMOGLOBIN 32.7 pg (28.0-32.0); MEAN CORPUSCULAR VOLUME 99.3 fL (81.0-99.0); MEAN PLATELET VOLUME 8.3 fl (7.4-10.4); MONOCYTES % 7.7 % (2.0-8.0); NEUTROPHILS % 72.7 % (40.0-76.0); PLATELET 238 x1000/uL (130-400); RED CELL DISTRIBUTION WIDTH 20.6 % (11.6-14.6)
[2020-01-20 08:48] LABS: HEMATOCRIT. 20.8 % (36.0-48.0); HEMOGLOBIN. 6.9 g/dL (12.0-16.0)
[2020-01-20] MEDS: AMLODIPINE 10MG TABLET PO SCH (09:00)
[2020-01-20] MEDS: ENOXAPARIN 30MG/0.3ML SYR SUBCUT SCH (09:00)
[2020-01-20] MEDS: ASPIRIN 325MG EC TABLET PO SCH (09:00)
[2020-01-20] MEDS: ASCORBIC ACID 500 MG TABLET PO SCH ×2 (09:36→21:17)
[2020-01-20] MEDS: FAMOTIDINE 20MG TABLET PO SCH (09:36)
[2020-01-20] MEDS: GUAIFENESIN/DM 600MG/30MG ER TAB 12HR PO SCH ×2 (09:36→21:17)
[2020-01-20] MEDS: ZINC SULFATE 220 MG ( 50 ) CAPSULE PO SCH (09:36)
[2020-01-20] MEDS ORDERED: IPRATROPIUM/ALBUTEROL 0.5-3(2.5)MG/3ML NEB HHN PRN (13:45)
[2020-01-20] MEDS: BUDESONIDE 0.5MG/2ML NEB HHN SCH ×2 (15:22→20:53)
[2020-01-20] MEDS ORDERED: ALBUTEROL (0.083%) 2.5MG/3ML NEB HHN PRN (15:45)
[2020-01-20] MEDS ORDERED: ALBUTEROL (0.083%) 2.5MG/3ML NEB HHN SCH (18:00)
[2020-01-20] MEDS: IPRATROPIUM/ALBUTEROL 0.5-3(2.5)MG/3ML NEB HHN SCH (20:53)
[2020-01-21] VITALS: BP_SYST 147
[2020-01-21] MEDS: IPRATROPIUM/ALBUTEROL 0.5-3(2.5)MG/3ML NEB HHN SCH ×5 (02:20→20:22)
[2020-01-21 04:00] VITALS: BP 113/56
[2020-01-21] MEDS: PIPERACILLIN/TAZOBACTAM 2.25 G in DEXTROSE 5% WATER 50 ML IV SCH ×2 (04:24→16:57)
[2020-01-21 08:00] VITALS: BP 141/76
[2020-01-21 08:39] LABS: HEMATOCRIT. 23.5 % (36.0-48.0); HEMOGLOBIN. 7.7 g/dL (12.0-16.0); MEAN CORPUSCULAR HEMOGLOBIN 32.6 pg (28.0-32.0); MEAN CORPUSCULAR VOLUME 98.8 fL (81.0-99.0); MEAN PLATELET VOLUME 8.2 fl (7.4-10.4); PLATELET 234 x1000/uL (130-400); RED BLOOD CELL COUNT 2.37 mill/uL (4.2-5.4); RED CELL DISTRIBUTION WIDTH 19.8 % (11.6-14.6)
[2020-01-21] MEDS: FAMOTIDINE 20MG TABLET PO SCH (08:59)
[2020-01-21] MEDS: ZINC SULFATE 220 MG ( 50 ) CAPSULE PO SCH (08:59)
[2020-01-21] MEDS: ASCORBIC ACID 500 MG TABLET PO SCH ×2 (08:59→21:12)
[2020-01-21] MEDS: GUAIFENESIN/DM 600MG/30MG ER TAB 12HR PO SCH ×3 (08:59→21:12)
[2020-01-21] MEDS: ASPIRIN 325MG EC TABLET PO SCH ×2 (08:59→09:00)
[2020-01-21] MEDS: AMLODIPINE 10MG TABLET PO SCH (09:00)
[2020-01-21] MEDS: ENOXAPARIN 30MG/0.3ML SYR SUBCUT SCH (09:00)
[2020-01-21] MEDS: BUDESONIDE 0.5MG/2ML NEB HHN SCH (10:23)
[2020-01-21] MEDS ORDERED: POTASSIUM CHLORIDE 20MEQ TABLET SR PO SCH (10:30)
[2020-01-21] MEDS ORDERED: VANCOMYCIN 750 MG PREMIX 150 ML IV NR (12:00)
[2020-01-21 12:25] LABS: PLATELET ESTIMATE NORMAL
[2020-01-21 15:14] VITALS: BP 131/78
[2020-01-21 20:00] VITALS: BP 166/90
[2020-01-21] MEDS: EPOETIN ALFA 4000UNITS/ML VIAL SUBCUT SCH (21:13)
[2020-01-22] VITALS: BP 146/65
[2020-01-22] MEDS: IPRATROPIUM/ALBUTEROL 0.5-3(2.5)MG/3ML NEB HHN SCH ×4 (01:35→21:17)
[2020-01-22 04:00] VITALS: BP 161/68
[2020-01-22] MEDS: PIPERACILLIN/TAZOBACTAM 2.25 G in DEXTROSE 5% WATER 50 ML IV SCH ×2 (04:19→16:01)
[2020-01-22] MEDS: BUDESONIDE 0.5MG/2ML NEB HHN SCH ×2 (07:16→21:20)
[2020-01-22 08:00] VITALS: BP 166/85
[2020-01-22 08:02] LABS: HEMATOCRIT. 22.7 % (36.0-48.0); HEMOGLOBIN. 7.5 g/dL (12.0-16.0); MEAN CORPUSCULAR HEMOGLOBIN 32.9 pg (28.0-32.0); MEAN CORPUSCULAR VOLUME 99.6 fL (81.0-99.0); MEAN PLATELET VOLUME 8.2 fl (7.4-10.4); PLATELET 250 x1000/uL (130-400); RED BLOOD CELL COUNT 2.28 mill/uL (4.2-5.4); RED CELL DISTRIBUTION WIDTH 19.2 % (11.6-14.6)
[2020-01-22] MEDS: ZINC SULFATE 220 MG ( 50 ) CAPSULE PO SCH (08:15)
[2020-01-22] MEDS: ENOXAPARIN 30MG/0.3ML SYR SUBCUT SCH (08:15)
[2020-01-22] MEDS: ASPIRIN 325MG EC TABLET PO SCH (08:15)
[2020-01-22] MEDS: ASCORBIC ACID 500 MG TABLET PO SCH ×2 (08:15→21:24)
[2020-01-22] MEDS: FAMOTIDINE 20MG TABLET PO SCH (08:15)
[2020-01-22] MEDS: GUAIFENESIN/DM 600MG/30MG ER TAB 12HR PO SCH ×2 (08:16→21:00)
[2020-01-22] MEDS: AMLODIPINE 10MG TABLET PO SCH (08:16)
[2020-01-22 09:50] LABS: BG BASE EXCESS -4.1 mmol/L (-2.0-2.0); BG CARBOXYHEMOGLOBIN 1.3 % (0.5-1.5); BG DEOXYHEMOGLOBIN 8.2 % (0.0-5.0); BG FRACTION INSPIRED OXYGEN 21; BG HCO3 ACT 20.1 mmol/L (22.0-26.0); BG METHEMOGLOBIN 0.2 % (0.0-1.5); BG OXYGEN SATURATION 91.7 % (92.0-98.5); BG OXYHEMOGLOBIN 90.3 % (94.0-97.0); BG PCO2 32.6 mmHg (35.0-45.0); BG PH 7.407 (7.350-7.450); BG PO2 63.2 mmHg (75.0-100.0); BG SAMPLE SITE RIGHT RADIAL; BG TOTAL HEMOGLOBIN 8.3 g/dL (12.0-18.0); BG VENT MODE ROOM AIR
[2020-01-22 10:49] LABS: PLATELET ESTIMATE NORMAL
[2020-01-22] MEDS: CLONIDINE 0.1MG TABLET PO PRN (11:52)
[2020-01-22 12:00] VITALS: BP 179/104
[2020-01-22 16:00] VITALS: BP 157/76
[2020-01-22 20:00] VITALS: BP 123/72
[2020-01-23] VITALS: BP 163/67
[2020-01-23] MEDS: ACETAMINOPHEN 325MG TABLET PO PRN (00:55)
[2020-01-23] MEDS: IPRATROPIUM/ALBUTEROL 0.5-3(2.5)MG/3ML NEB HHN SCH ×3 (01:59→14:35)
[2020-01-23 04:00] VITALS: BP 156/76
[2020-01-23] MEDS: PIPERACILLIN/TAZOBACTAM 2.25 G in DEXTROSE 5% WATER 50 ML IV SCH (04:09)
[2020-01-23 08:00] VITALS: BP 142/61
[2020-01-23] MEDS: AMLODIPINE 10MG TABLET PO SCH (08:18)
[2020-01-23] MEDS: GUAIFENESIN/DM 600MG/30MG ER TAB 12HR PO SCH (08:19)
[2020-01-23] MEDS: ASCORBIC ACID 500 MG TABLET PO SCH (08:20)
[2020-01-23] MEDS: ZINC SULFATE 220 MG ( 50 ) CAPSULE PO SCH (08:20)
[2020-01-23] MEDS: ASPIRIN 325MG EC TABLET PO SCH (08:20)
[2020-01-23] MEDS: FAMOTIDINE 20MG TABLET PO SCH (08:20)
[2020-01-23] MEDS: ENOXAPARIN 30MG/0.3ML SYR SUBCUT SCH (08:21)
[2020-01-23] MEDS: BUDESONIDE 0.5MG/2ML NEB HHN SCH (09:16)
[2020-01-23] MEDS ORDERED: AMLO10TA4 MT (09:49)
[2020-01-23] MEDS ORDERED: ALBU6.7H9 INH (09:50)
[2020-01-23 09:51] VITALS: BP 146/79
[2020-01-23 12:00] VITALS: BP 122/81
== END 2020-01-23 15:34 | disposition home or self-care (01) | DRG 720 ==
LOC: ER 01:12 → MICUSO 03:37 → CANRESERV 08:16 → ENRESERV 08:16 → 6WST 22:40
PROVIDERS: ADMIT Internal Medicine; ATTEND Internal Medicine
PROC: 5A1D70Z Performance of Urinary Filtration, Intermittent, Less than 6 Hours Per Day (ICD-10-PCS; principal; 2020-01-19)
PROC: 30233N1 Transfusion of Nonautologous Red Blood Cells into Peripheral Vein, Percutaneous Approach (ICD-10-PCS; 2020-01-20)
PROC: 5A1D70Z Performance of Urinary Filtration, Intermittent, Less than 6 Hours Per Day (ICD-10-PCS; 2020-01-22)
DX: A41.9 Sepsis, unspecified organism (principal); E43 Unspecified severe protein-calorie malnutrition; J96.01 Acute respiratory failure with hypoxia; J44.1 Chronic obstructive pulmonary disease with (acute) exacerbation; J18.9 Pneumonia, unspecified organism; N18.6 End stage renal disease; I13.2 Hypertensive heart and chronic kidney disease with heart failure and with stage 5 chronic kidney disease, or end stage renal disease; E87.6 Hypokalemia; R65.20 Severe sepsis without septic shock; Y95 Nosocomial condition; J44.0 Chronic obstructive pulmonary disease with (acute) lower respiratory infection; E87.1 Hypo-osmolality and hyponatremia; D63.8 Anemia in other chronic diseases classified elsewhere; E78.00 Pure hypercholesterolemia, unspecified; E87.2 Acidosis; F17.210 Nicotine dependence, cigarettes, uncomplicated; I08.0 Rheumatic disorders of both mitral and aortic valves; I21.4 Non-ST elevation (NSTEMI) myocardial infarction; I50.43 Acute on chronic combined systolic (congestive) and diastolic (congestive) heart failure; S91.302A Unspecified open wound, left foot, initial encounter; I73.9 Peripheral vascular disease, unspecified; X58.XXXA Exposure to other specified factors, initial encounter; Z20.828 Contact with and (suspected) exposure to other viral communicable diseases; Y93.89 Activity, other specified; Z68.29 Body mass index [BMI] 29.0-29.9, adult; Z59.0 Homelessness; Y92.89 Other specified places as the place of occurrence of the external cause; Z99.2 Dependence on renal dialysis; Y99.8 Other external cause status; Z88.8 Allergy status to other drugs, medicaments and biological substances; Z79.899 Other long term (current) drug therapy
CPT/HCPCS: 36415; 36600; 71045; 80048; 80053; 80061; 80202; 80305; 82375; 82550; 82553; 82805; 83036; 83605; 83880; 84100; 84145; 84484; 85025; 85027; 85379; 86850; 86900; 86920; 87493; 87635; 93005; 93306; 93923; 93970; 94640; 94660; 99291; J0885; J1650; J1940; J2543; J2930; J3370; J3475; J7060; J7626; P9016